=== PATIENT | male | born 1995 | race African-American/Black ===

== ENCOUNTER 2018-02-07 07:43 | Emergency (ER) | payer SELFPAY ==
[~2018-02-07] VITALS: Ht 180.3 cm; Wt 79.4 kg
[~2018-02-07 07:43] MED LIST: CEPHALEXIN500 M1 PO; CLARITIN10 MG PO; IBU-6600 MG PO; MOTRIN400 MG PO; NAPROSYN500 MG PO; TYLENOL W/CODEI1 TA4 PO
[2018-02-07 07:45] VITALS: BP 143/74
[2018-02-07 08:04] LABS: BASO % 0.2 % (0.0-1.0); EOS % 0.2 % (1.0-4.0); HEMATOCRIT 41.4 % (42.0-52.0); HEMOGLOBIN 14.3 g/dl (14.0-18.0); LYMPH # 0.8 10*3/uL (1.3-4.4); LYMPH % 7.3 % (27.0-41.0); MEAN CORPUSCULAR HGB 28.7 pg (27.0-31.0); MEAN CORPUSCULAR HGB CONC 34.5 g/dl (33.0-37.0); MEAN PLATELET VOLUME 10.1 fl (9.6-12.3); MONO # 0.3 10*3/uL (0.1-1.0); NEUT # 9.9 10*3/uL (2.3-7.9); PLATELET COUNT AUTOMATED 187 10*3/uL (130-400); RED BLOOD COUNT 4.99 10*6/uL (4.50-5.90); RED CELL DISTRI WIDTH 13.2 % (0-14.5); WHITE BLOOD COUNT 11.1 10*3/uL (4.8-10.8)
[2018-02-07 08:18] LABS: ALBUMIN 4.8 gm/dl (3.1-4.5); ALKALINE PHOSPHATASE 59 U/L (45-117); BUN 20 mg/dl (7-24); CHLORIDE 107 mmol/L (98-107); LIPASE 95 U/L (73-393); POTASSIUM 3.5 mmol/L (3.5-5.1); SGOT/AST 32 IU/L (3-35); SGPT/ALT 32 U/L (12-78); SODIUM 143 mmol/L (136-145); TOTAL PROTEIN 7.5 gm/dL (6.4-8.2)
[2018-02-07] MEDS ORDERED: ZOFRAN ODT4 MG SL (09:15)
== END 2018-02-07 09:28 | disposition home or self-care (01) ==
LOC: ED 07:43
PROVIDERS: Emergency Medicine
DX: K52.9 Noninfective gastroenteritis and colitis, unspecified (principal); F17.200 Nicotine dependence, unspecified, uncomplicated

== ENCOUNTER 2019-01-19 12:18 | Emergency (ER) | payer BC ==
[~2019-01-19] VITALS: Ht 180.3 cm; Wt 74.8 kg
[2019-01-19 12:18] VITALS: BP 134/77
[~2019-01-19 12:18] MED LIST changes: +ZOFRAN ODT4 MG SL
[2019-01-19] MEDS ORDERED: NORCO 5-325 TA1 EACH PO ×2 (16:19→16:21)
[2019-01-27] MEDS ORDERED: DOXYCYCLINE100 M3 PO (09:22)
[2019-01-27] MEDS ORDERED: TRAMADOL HCL50 MG PO (09:23)
[2019-01-27] MEDS ORDERED: XARELTO10 MG PO (09:24)
== END 2019-01-19 16:33 | disposition home or self-care (01) ==
LOC: ED 12:18
DX: S82.51XA Displaced fracture of medial malleolus of right tibia, initial encounter for closed fracture (principal); F17.200 Nicotine dependence, unspecified, uncomplicated; V29.9XXA Motorcycle rider (driver) (passenger) injured in unspecified traffic accident, initial encounter; Y93.55 Activity, bike riding; Y92.89 Other specified places as the place of occurrence of the external cause; Y99.8 Other external cause status

== ENCOUNTER → 2019-01-26 | Outpatient (CLI) | payer BC ==
[~2019-01-26] MED LIST changes: +DOXYCYCLINE100 M3 PO; +NORCO 5-325 TA1 EACH PO; +TRAMADOL HCL50 MG PO; +XARELTO10 MG PO
--- NOTE | ~2019-01-26 | EKG ---
[place], [place] ELECTROCARDIOGRAM REPORT NAME: LYNNE BANDA JR UNIT #: [id number] ROOM: DOCTOR: EPIPHANY DRAFT REPORT BIRTHDATE: [birth year] [facility] Test Date: 2019-01-26 Test Time: 10:04:01 Pat Name: LYNNE BANDA Department: Room: Gender: Scout: Etta Yao : 1995 Requested By: NIALL VICK Order Number: [id number] Reading MD: Niall Vick MD Measurements Intervals [place] Rate: 56 P: 70 CA: 146 QRS: 20 QRSD: 103 T: 36 QT: 401 QTc: 387 Interpretive Statements Sinus rhythm Lateral infarct, acute (LAD) Borderline ST elevation, anterior leads No previous ECG available for comparison Electronically Signed On 01-27-2019 8:57:43 PDT by Niall Vick MD CM:EKGRPT:ELECTROCARDIOGRAM REPORT [id number] NIALL VICK MD EPIPHANY DRAFT REPORT NIALL VICK MD
[2019-01-26 10:17] LABS: BASO % 0.5 % (0.0-1.0); EOS # 0.3 10*3/uL (0.0-0.4); EOS % 5.6 % (1.0-4.0); HEMATOCRIT 41.9 % (42.0-52.0); LYMPH # 1.1 10*3/uL (1.3-4.4); LYMPH % 17.2 % (27.0-41.0); MEAN CELL VOLUME 86.4 fl (80.0-94.0); MEAN CORPUSCULAR HGB 28.9 pg (27.0-31.0); MEAN CORPUSCULAR HGB CONC 33.4 g/dl (33.0-37.0); MEAN PLATELET VOLUME 9.8 fl (9.6-12.3); MONO # 0.4 10*3/uL (0.1-1.0); MONO % 5.7 % (3.0-9.0); NEUT # 4.3 10*3/uL (2.3-7.9); NEUT % 70.8 % (47.0-73.0); PLATELET COUNT AUTOMATED 225 10*3/uL (130-400); RED BLOOD COUNT 4.85 10*6/uL (4.50-5.90); RED CELL DISTRI WIDTH 13.6 % (0-14.5); WHITE BLOOD COUNT 6.1 10*3/uL (4.8-10.8)
[2019-01-26 10:31] LABS: ALKALINE PHOSPHATASE 61 U/L (45-117); BUN 14 mg/dl (7-24); CHLORIDE 108 mmol/L (98-107); CREATININE 1.08 mg/dL (0.70-1.30); POTASSIUM 4.2 mmol/L (3.5-5.1); SGOT/AST 17 IU/L (3-35); SGPT/ALT 23 U/L (12-78); SODIUM 142 mmol/L (136-145); TOTAL PROTEIN 6.9 gm/dL (6.4-8.2)
== END | disposition home or self-care (01) ==
LOC: RESCLI 02:10
PROVIDERS: Internal Medicine
DX: Z01.818 Encounter for other preprocedural examination (principal); T14.8XXA Other injury of unspecified body region, initial encounter; Z72.0 Tobacco use; Z71.6 Tobacco abuse counseling

== ENCOUNTER → 2019-01-27 | Day surgery (SDC) | payer BC ==
[~2019-01-27] VITALS: Ht 180.3 cm; Wt 72.6 kg
--- NOTE | ~2019-01-27 | WRIGHTHP ---
[place], [place] PATIENT HISTORY AND PHYSICAL EXAM [id number] UN[facility] #: [id number] ROOM: DOCTOR: JEN FRY DPM BIRTHDATE: [birth year] DOS: 01/27/2019 LOWER EXTREMITY PHYSICAL EXAM: VASCULAR: Pedal pulses 2/4, DP and PT bilaterally. Good capillary refill time. The patient is a smoker; discussed him about that does cause wound and delayed bone healing potentially. He agreed this is a good time for him to stop smoking. NEUROLOGICAL: He has intact epicritic sensation bilaterally. MUSCULOSKELETAL: He has painful right ankle. He has difficult standing activity with pain around the projected medial malleolus of his right ankle. ____. DERMATOLOGICAL: Skin integrity is intact. There is no evidence of open wounds noted on his right. ORTHOPEDIC: Displaced medial malleolus fracture with a small avulsion of the posterior medial portion of his right ankle. JEN FRY DPM CM:HISPHYS:PATIENT HISTORY AND PHYSICAL EXAMINATION [id number] JEN FRY DPM 01/27/19 1154 interface
--- NOTE | ~2019-01-27 | WRIGHTHP ---
[place], [place] PATIENT HISTORY AND PHYSICAL EXAM [id number] UNIT #: [id number] ROOM: DOCTOR: JEN FRY DPM BIRTHDATE: [birth year] DOS: INDICATION: The patient is seen for followup regarding fracture of the ankle. A CAT scan demonstrates he has a medial malleolus fracture, some posterior malleolar avulsion on the right. At this time, seen in the preoperative area; introduced myself; discussed the pros, cons, risks, benefits overcorrection, undercorrection, recurrence, numbness, worsening, nonunion, delayed union, DVT, PE, limb loss, etc. With this in mind, the patient is set for surgery here at [facility] on 01/27/2019 understanding pros, cons, risks and benefits. With this mind, he is set; understands the risks involved; agreed with the site jake; concurred with the preoperative management and agreed with the surgery. With this mind, set for surgery; understanding the pros, cons, risks and benefits. JEN FRY DPM CM:HISPHYS:PATIENT HISTORY AND PHYSICAL EXAMINATION 105 JEN FRY DPM 01/27/19 1051 interface
--- NOTE | ~2019-01-27 | O ---
[place], [place] OPERATIVE NOTE [facility]: [id number] UNIT #: [id number] ROOM: DOCTOR: ANG FREGOSOJEN BIRTHDATE: [birth year] DOS: 01/27/2019 SURGEON: Jen Fry DPM ROSS FURNACE OPERATOR: 1. Dr. Lam Loza, fellow. 2. Harshad Lopez, PGY3. 3. Joselito Castorena, PGY1. PREOPERATIVE DIAGNOSIS: Displaced medial malleolus ankle fracture on the right. POSTOPERATIVE DIAGNOSIS: Displaced medial malleolus ankle fracture on the right. PROCEDURE: Open reduction and internal fixation of right ankle. DESCRIPTION OF PROCEDURE: The patient was seen in preoperatively holding area, appropriate site marking was performed ____. He agreed with the site marking. He agreed with the preoperative management. With this in mind, he was brought into the OR and placed well-padded on OR table where anesthesia was achieved. Once the anesthesia was achieved, everyone in the room agreed with the timeout, where this was done and identify the patient location and the portion on the table. Once this was done, everybody agreed. Attention directed to his right lower leg and the right mid-thigh tourniquet was inflated to 300 mmHg. After usual sterile prep, it was inflated to 300 mmHg and under fluoroscopy guidance, a small stab incision was made medially, reduced the ankle and pinned this with two K-wires ____ in multiple areas, checked out the medial deltoid as well as the syndesmosis and they were noted to be stable. At this point in time, two 3.5 ____ cortical screws were inserted into the medial malleolus with washers. The washers did not work well, so we took him out and two 3.5 solid cortical screws were placed into the medial malleolus stabilizing the ankle. Again, at this time, it was stressed in the deltoid ____ syndesmosis ligament and it was noted to be intact with no instability noted from those ligaments. The wounds then were sutured with 2-0 Prolene and he was blocked with 30 mL of 0.5% Marcaine about the surgical site proximal. A univalve BK cast was applied. The tourniquet was released ____ right lower extremity. He tolerated the procedure and anesthesia well and left the OR with vital signs stable and vascular status intact. [place], [place] OPERATIVE NOTE NAME: LYNNE BANDA JR UNIT #: [id number] ROOM: DOCTOR: JEN FRY DPM BIRTHDATE: [birth year] JEN FRY DPM CM:OPRECORD:OPERATIVE NOTE [id number] JEN FRY DPM 01/27/19 1803 interface
[2019-01-27 06:35] VITALS: BP 143/85
[2019-01-27 09:15] VITALS: BP 147/93
[2019-01-27 09:30] VITALS: BP 146/77
[2019-01-27 09:46] VITALS: BP 142/73
[2019-01-27 10:15] VITALS: BP 134/88
== END | disposition home or self-care (01) ==
LOC: SDC 01-26 11:00
DX: S82.51XA Displaced fracture of medial malleolus of right tibia, initial encounter for closed fracture (principal); F17.210 Nicotine dependence, cigarettes, uncomplicated; Z71.6 Tobacco abuse counseling; Z72.89 Other problems related to lifestyle; Z98.890 Other specified postprocedural states; Z88.8 Allergy status to other drugs, medicaments and biological substances; X58.XXXA Exposure to other specified factors, initial encounter; Y93.89 Activity, other specified; Y92.89 Other specified places as the place of occurrence of the external cause; Y99.8 Other external cause status; Z83.3 Family history of diabetes mellitus

== ENCOUNTER 2022-06-27 22:55 | Emergency (ER) | payer BC ==
[~2022-06-27] VITALS: Ht 180.3 cm; Wt 79.4 kg
[2022-06-27 23:01] VITALS: BP 149/84
[2022-06-27] MEDS ORDERED: Ondansetron4 MG PO (23:39)
== END 2022-06-28 00:05 | disposition home or self-care (01) ==
LOC: ED 22:55
DX: R11.2 Nausea with vomiting, unspecified (principal); F10.90 Alcohol use, unspecified, uncomplicated; Z87.891 Personal history of nicotine dependence

== ENCOUNTER → 2024-10-18 | Day surgery (SDC) | payer BC ==
[~2024-10-18] VITALS: Ht 180.3 cm; Wt 98.0 kg
[~2024-10-18] MED LIST changes: +BUPivacaine 0.5% 30 ML IV ONE; +Dexamethasone Sodium Phospha 4 MG/ML VIAL IV ONE; +HYDROCODONE-AC1 EAC1 PO; +IVERMECTIN3 MG PO; +Ketorolac Tromethamine 30 MG/ML VIAL IV ONE; +Lactated Ringer's Solution 1,000 ML IV ONE; +Lactated Ringer's Solution 1,000 ML IV SCH; +Lidocaine Hydrochloride 5 ML VIAL IV ONE; +Midazolam Hydrochloride 2 MG/2 ML VIAL IV ONE; +Ondansetron Hydrochloride 4 MG/2 ML VIAL IV ONE; +Ondansetron4 MG PO; +PROPOFOL 200 MG/20 ML VIAL IV ONE; +ROCURONIUM BROMIDE 50 MG/5 ML SYRINGE IV ONE; +SEVOFLURANE 250 ML BOT INH ONE; +SUGAMMADEX SODIUM 200 MG/2 ML VIAL IV ONE; +Succinylcholine Chloride 200 MG/10 ML SYRINGE IV ONE; +ceFAZolin sodium/sodium chlor 20 ML IV ONE; +dexmedeTOMIDine HCL 200 MCG/2 ML VIAL IV ONE; +fentaNYL CITRATE 100 MCG/2 ML VIAL IV ONE
[2024-10-18 07:55] VITALS: BP 130/81
[2024-10-18 10:22] VITALS: BP 150/90
[2024-10-18 10:37] VITALS: BP 129/75
[2024-10-18 10:52] VITALS: BP 120/81
[2024-10-18 11:07] VITALS: BP 122/77
== END | disposition home or self-care (01) ==
LOC: SDC 10-15 10:15
PROVIDERS: ATTEND Surgery
DX: K42.9 Umbilical hernia without obstruction or gangrene (principal); M79.89 Other specified soft tissue disorders; F17.210 Nicotine dependence, cigarettes, uncomplicated; F10.90 Alcohol use, unspecified, uncomplicated; Z98.890 Other specified postprocedural states; Z79.899 Other long term (current) drug therapy